=== PATIENT | female | born 1950 | race Caucasian/White ===

== ENCOUNTER 2024-06-08 16:26 | Emergency (ER) | payer MEDICARE, SELFPAY ==
[2024-06-08] VITALS (12 sets, daily range): BP systolic 118–150; BP diastolic 66–76; PULSE 54–70; RESP 9–18; TEMP 36.7; O2SAT 96–98; BMI 28.3
--- NOTE | 2024-06-08 17:47 | EKG_ITS ---
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
--- NOTE | 2024-06-08 17:47 | DI.RAD.S_ITS ---
PROCEDURE: XR CHEST 1V INDICATIONS: chest pain TECHNIQUE: One view of the chest was acquired. COMPARISON: None. FINDINGS: Surgical changes and devices: None. Lungs and pleura: Lungs are clear. No pleural effusions or pneumothorax. Mediastinum: Mediastinal contours appear normal. Heart size is enlarged. Bones and chest wall: No suspicious bony lesions. Overlying soft tissues appear unremarkable. IMPRESSION: No acute pulmonary process. Dictated by: Inez Cortes M.D. on 06/08/2024 at 18:39 Approved by: Inez Cortes M.D. on 06/08/2024 at 18:39
--- NOTE | 2024-06-08 17:50 | PC.NURSE ---
Pt states she would like to go home. I asked pt what her concerns were regarding her visit. Pt states she feels silly for coming to the ER for her symptoms and wants to leave. I talked with pt to find out more about her symptoms and provided education on s/s. Pt understands concern and states she is willing to stay in the ER to be evaluated by provider. Pt endorses she was nervous to go home because her 1.5years ago in his sleep, and she did not want to have a stroke while at home alone. Pt alert and oriented x4. No weakness. No nausea. No chest pain or other pain. She initially contributed her symptoms to taking trazodone at night to help fall asleep and decided to come to the ER after her dizziness did not change throughout the day.
[2024-06-08 18:21] LABS: Add Manual Diff / Slide Review NO; Basophils Absolute Auto 0 /uL (0-100); Basophils Percent Auto 0.9 % (0-2); Eosinophils Absolute Auto 100 /uL (0-450); Eosinophils Percent Auto 2.6 % (2-4); Hematocrit 41.9 % (36-46); Hemoglobin 13.7 g/dL (12.0-16.0); Lymphocytes Absolute Auto 1500 /uL (1100-4500); Mean Corpuscular HGB Conc 32.8 % (30-36); Mean Corpuscular Hemoglobin 28.5 PG (26-34); Mean Corpuscular Volume 86.8 fL (80-100); Monocytes Absolute Auto 400 /uL (0-900); Monocytes Percent Auto 9.9 % (3-14); Neutrophils Absolute Auto 1900 /uL (1500-7000); Neutrophils Percent Auto 49.6 % (50-75); Platelet Count 204 X10^3/uL (150-400); Red Blood Cell Count 4.82 X10^6/uL (4.0-5.2); Red Cell Distribution Width 13.9 % (11.6-14.8); White Blood Cell Count 3.9 X10^3/uL (4.5-11.0)
[2024-06-08 18:30] LABS: Prothrombin Time 10.9 SECONDS (9.4-12.5)
[2024-06-08 18:33] LABS: PTT Partial Thromboplastin Tim 38 SECONDS (25.1-36.5)
[2024-06-08 18:36] LABS: Alanine Aminotransferase 20 IU/L (<35); Albumin 4.2 g/dL (3.5-5.0); Albumin Globulin Ratio 1.4 (1.0-2.8); Alkaline Phosphatase 64 U/L (38-126); Aspartate Aminotransferase 21 IU/L (14-36); BUN Creatinine Ratio 25.4 (6-22); Bilirubin Total 0.3 mg/dL (0.2-1.3); Blood Urea Nitrogen 16 mg/dL (7-17); Calcium 9.1 mg/dL (8.4-10.2); Carbon Dioxide 25 mmol/L (22-32); Chloride 107 mmol/L (98-107); Creatine Kinase 67 U/L (30-135); Estimated Glomerular Filt Rate > 60 mL/min (>60); Glucose 104 mg/dL (80-110); Lipase 96 U/L (23-300); Magnesium 2.2 mg/dL (1.6-2.3); Potassium 4.4 mmol/L (3.4-5.1); Sodium 137 mmol/L (137-145); Total Protein 7.2 g/dL (6.3-8.2)
--- NOTE | 2024-06-08 18:37 | ED.DIZZY ---
HPI - Dizziness General Chief Complaint: Dizziness Stated Complaint: sent by [facility] for dizziness Time Seen by Provider: 06/08/24 17:57 Source: patient Mode of arrival: Wheelchair History of Present Illness HPI Narrative: Patient 74-year-old female history of hypothyroidism presenting today with sudden onset of dizziness. She reports that this morning around 5:00 a.m. she woke up feeling dizzy. She tried to get up and go the kitchen make coffee and just felt like she was not doing well. She felt the floor was on even. She has been feeling nauseated off and on but not too bad never really vomited. He has been feeling tingling all over her body. She can find positions of comfort of lying flat and not moving or sitting straight upright. But every time she turns her head she gets really dizzy. She has no prior history of vertigo or CVA. She reports she has been under a lot of stress this year recently started taking half a tablet of trazodone to go to sleep at night which has helped her. She has been doing this for about 10 nights in a row and never had this issue. She denies any fevers or chills. Related Data Previous Rx's Medication Instructions Recorded meclizine 25 mg tablet 25 mg PO TID PRN dizziness #10 tabs 06/08/24 ondansetron 4 mg disintegrating 4 mg PO Q8H PRN nausea and 06/08/24 tablet vomiting #10 tabs Allergies Allergy/AdvReac Type Severity Reaction Status Date / Time No Known Drug Allergies Allergy Verified 06/08/24 16:45 Patient History Social History Smoking Status: Never smoker Smoking Status: Never smoker alcohol intake frequency: holidays/special occasions only Substance Use Type: marijuana Exam Initial Vital Signs Initial Vital Signs: Vital Signs Temperature 98.0 F 06/08/24 16:36 Pulse Rate 70 06/08/24 16:36 Respiratory Rate 18 06/08/24 16:36 Blood Pressure 150/76 H 06/08/24 16:36 Pulse Oximetry 98 06/08/24 16:36 Oxygen Delivery Method Room Air 06/08/24 16:36 GENERAL: Alert well-appearing 74-year-old female sitting upright and in [no acute] distress. HEENT: Head atraumatic,EOMI, pupils reactive, no nystagmus face symmetric, [moist] mucous membranes CARDIOVASCULAR: Regular rate and rhythm without murmurs, rubs or gallops. RESPIRATORY: Breath sounds equal bilaterally, no wheezes rales or rhonchi. ABDOMEN: Soft, nontender. Normoactive bowel sounds all 4 quadrants. No guarding or rebound. EXTREMITIES: Normal range of motion, no clubbing or edema. Neurovascularly intact NEUROLOGICAL: Alert and oriented x4.Normal gait and speech. Cranial nerves II through XII grossly intact. Audio/Video Technician strength equal bilaterally good omtqlt-lb-pool bilaterally good uqxi-fr-iool face symmetric no facial droop no aphasia or dysarthria SKIN: Warm, dry, no laceration, no petechiae, no rashes or lesions. Scores NIH Stroke Scale Level of Conciousness: Alert, keenly responsive Ask month/age: Answers both questions correctly. Open/close eyes, close hand: Performs both tasks correctly Best gaze horizontal: Normal Visual balbuena: No visual loss Facial palsy: Normal symetrical movement Left arm drift: No drift for full 10 sec Right arm drift: No drift for full 10 sec Left leg drift: No drift for full 5 sec Right leg drift: No drift for full 5 sec Limb ataxia: Absent Sensory on face/arms/legs: Normal, no sensory loss Best language: No aphasia, normal Dysarthria: Normal Extinction or inattention: No abnormality Total NIH Stroke scale score: 0 Course Orders Ordered: ED Orders 06/08/24 17:47 XR chest 1V Stat EKG-12 Lead Stat 06/08/24 18:15 Complete Blood Count AUTO DIFF Stat Comprehensive Metabolic Panel Stat Lipase Stat Magnesium Stat NT-proBNP (BNP-Adult 18+) Stat PTT Partial Thromboplastin Brandon Stat Prothrombin Time INR Stat Troponin & CK Cardiac Panel Stat 06/08/24 18:44 CT angio head and neck Stat Discontinued Medications Aspirin (Aspirin 81 Mg Chew Tab) 324 mg PO NOW ONE Stop: 06/08/24 17:48 Last Admin: 06/08/24 18:18 Dose: Not Given Documented By: SPF Meclizine HCl (Meclizine Hcl 12.5 Mg Tablet) 50 mg PO NOW ONE Stop: 06/08/24 20:03 Last Admin: 06/08/24 20:06 Dose: 50 mg Documented By: LS Vital Signs Vital signs: Vital Signs - 8 hr 06/08/24 18:30 06/08/24 18:31 06/08/24 18:31 Pulse Rate 64 64 Respiratory Rate Blood Pressure 118/66 Pulse Oximetry 98 98 Oxygen Delivery Method Oxygen Flow Rate 06/08/24 19:08 06/08/24 19:30 06/08/24 19:52 Pulse Rate 59 L 59 L 60 Respiratory Rate 14 17 Blood Pressure Pulse Oximetry 96 97 97 Oxygen Delivery Method Nasal Cannula Room Air Oxygen Flow Rate 2 06/08/24 19:52 Pulse Rate Respiratory Rate Blood Pressure 129/71 Pulse Oximetry Oxygen Delivery Method Oxygen Flow Rate MDM - Dizziness Lab Data 06/08/24 18:15 06/08/24 18:15 Labs: Lab Results 06/08/24 Range/Units 18:15 WBC 3.9 L (4.5-11.0) X10^3/uL RBC 4.82 (4.0-5.2) X10^6/uL Hgb 13.7 (12.0-16.0) g/dL Hct 41.9 (36-46) % MCV 86.8 (80-100) fL MCH 28.5 (26-34) PG MCHC 32.8 (30-36) % RDW 13.9 (11.6-14.8) % Plt Count 204 (150-400) X10^3/uL Neut % (Auto) 49.6 L (50-75) % Lymph % (Auto) 37.0 (25-40) % [place] % (Auto) 9.9 (3-14) % Eos % (Auto) 2.6 (2-4) % Baso % (Auto) 0.9 (0-2) % Neut # (Auto) 1900 (4311-9383) /uL Lymph # (Auto) 1500 (2739-8834) /uL [place] # (Auto) 400 (0-900) /uL Eos # (Auto) 100 (0-450) /uL Baso # (Auto) 0 (0-100) /uL PT 10.9 (9.4-12.5) SECONDS INR 1.0 (0.9-1.3) APTT 38 H (25.1-36.5) SECONDS Sodium 137 (137-145) mmol/L Potassium 4.4 (3.4-5.1) mmol/L Chloride 107 (98-107) mmol/L Carbon Dioxide 25 (22-32) mmol/L BUN 16 (7-17) mg/dL Creatinine 0.63 (0.52-1.04) mg/dL Estimated GFR > 60 (>60) mL/min BUN/Creatinine Ratio 25.4 H (6-22) Glucose 104 (80-110) mg/dL Calcium 9.1 (8.4-10.2) mg/dL Magnesium 2.2 (1.6-2.3) mg/dL Total Bilirubin 0.3 (0.2-1.3) mg/dL AST 21 (14-36) IU/L ALT 20 (<35) IU/L Alkaline Phosphatase 64 (38-126) U/L Total Creatine Kinase 67 (30-135) U/L Troponin I < 0.012 (0.01-0.034) ng/mL NT-Pro-B Natriuret Pep 94 (<125) pg/mL Total Protein 7.2 (6.3-8.2) g/dL Albumin 4.2 (3.5-5.0) g/dL Globulin 3.0 (1.7-4.1) g/dL Albumin/Globulin Ratio 1.4 (1.0-2.8) Lipase 96 (23-300) U/L Urine Dip Bedside Urine Glucose Negative Bedside Urine Bilirubin - Negative Bedside Urine Ketone - Negative Urine Specific [place] 1.010 Bedside Urine Occult Blood - Negative Bedside Urine pH 6.0 Bedside Urine Protein - Negative Bedside Urine Urobilinogen - Negative Bedside Urine Nitrite - Negative Bedside Urine Leukocytes - Negative Esterase Imaging Data Chest x-ray: Radiologist's Impression: PROCEDURE: XR CHEST 1V INDICATIONS: chest pain TECHNIQUE: One view of the chest was acquired. COMPARISON: None. FINDINGS: Surgical changes and devices: None. Lungs and pleura: Lungs are clear. No pleural effusions or pneumothorax. Mediastinum: Mediastinal contours appear normal. Heart size is enlarged. Bones and chest wall: No suspicious bony lesions. Overlying soft tissues appear unremarkable. IMPRESSION: No acute pulmonary process. Dictated by: Inez Cortes M.D. on 06/08/2024 at 18:39 CTA - brain/neck: Radiologist's Impression: PROCEDURE: CT ANGIO HEAD AND NECK INDICATIONS: dizzy TECHNIQUE: After the administration of intravenous contrast, 1 mm thick sections acquired from the aortic arch through the [place] of [place]. 3-dimensional vfygqai-fpcvqwigj-opqapxqjoz (MIP) and/or volume rendering reformats were acquired of the central intracranial vasculature and neck separately. For radiation dose reduction, the following was used: automated exposure control, adjustment of mA and/or kV according to patient size. COMPARISON: None. FINDINGS: Image quality: Diagnostic. BRAIN: The ventricular system and cortical sulci demonstrate atrophy, consistent for the patient's stated age. There are areas of hypodensity within the periventricular and subcortical white matter. There is no acute intra-or extra axial fluid collection. No acute hemorrhage, mass lesion or midline shift. Brainstem is unremarkable. Globes are symmetrical. Sinuses are aerated. Osseous structures are intact. HEAD CT ANGIOGRAPHY: Anterior circulation: Intracranial internal carotid arteries are normal in size and flow. The flow within the paired anterior cerebral arteries is normal and symmetric. The flow within the middle cerebral arteries is normal and symmetric. The anterior communicating artery is seen. No aneurysms are seen. Posterior circulation: Vertebral arteries are codominant. Visualized portions of the vertebral arteries demonstrate normal caliber, and join to form a normal appearing basilar artery. Flow within the posterior cerebral arteries is normal and symmetric. No aneurysms are seen. NECK CT ANGIOGRAPHY: Carotid system: The great vessels demonstrate a conventional anatomy as they arise from the aortic arch. The origins of the common carotid arteries appear patent. The common carotid arteries demonstrate normal caliber and courses. The bifurcation regions are both widely patent. The internal carotid arteries demonstrate normal calibers and courses. Posterior circulation: The origins of the vertebral arteries both appear widely patent. The more superior extracranial portions of both vertebral arteries also demonstrate normal courses and calibers. They join to form a normal appearing basilar artery. Soft tissues: Visualized neck soft tissues demonstrate no suspicious abnormalities. Bones: No suspicious bony lesions. Visualized cervical spine appears normally aligned. IMPRESSION: No significant intracranial arterial abnormality is seen. No significant abnormality is seen within the arteries of the neck. Any quantitative measurements of stenosis were performed using NASCET criteria. Dictated by: Inez Cortes M.D. on 06/08/2024 at 19:28 Approved by: Inez Cortes M.D. on 06/08/2024 at 19:30 ECG Data Attestation: I personally reviewed and interpreted this ECG as follows: Prior ECG tracings: not available for review Interpretation: Normal sinus rhythm rate 58 CO interval 170 QRS 72 T-wave inversion noted in lead 3 only no ischemic changes no priors to compare MDM Narrative Medical decision making narrative: [facility] CC: Dizziness Complicating co-morbidities: Hypothyroidism Medical records reviewed: Record from walk-in clinic reviewed Differential considered: Vertigo, posterior CVA Meniere's disease Exam documented above, pertinent findings include: NIH stroke scale now in a monogamous knotter hand strength equal face symmetric Lab Test results independently reviewed as above. Pertinent findings: WBC 3.9 CMP no electrolyte abnormality no ANDRES Troponin negative Independently reviewed EKG as above no ischemia no arrhythmia Imaging studies independently reviewed: CT angio no significant intracranial abnormality Chest x-ray no acute cardiopulmonary process Consultations: None Treatments: Meclizine Re-evaluations: Patient ambulated in the emergency department with a steady gait still feeling dizzy but she says no worse then she was previously Discussion: Patient 74-year-old female presenting today with sudden onset dizziness. It is very positional she has positions of comfort is lying flat or sitting up right. She has no focal deficits. Blood work is overall reassuring and within normal range. CT imaging does not show any abnormality. Patient ambulated she has not having any significant nausea or vomiting. At this time I think symptoms are most consistent with BPH rather than posterior stroke. Discharge Plan Departure Patient Disposition: Home Clinical Impression: Vertigo Instructions: DI for Vertigo Activity Restrictions/Additional Instructions: *You have been diagnosed with vertigo *What to do: At this time your blood work and CT scan overall reassuring. I think that you have vertigo. Unfortunately this resolves on its own. I hope that it gets better for you soon *Continue to take medications as directed Meclizine 25-50 mg every 8 hours if needed for dizziness Zofran 4 mg every 8 hours only if needed for nausea or vomiting *Follow up with your primary care provider in 2-3 days or call [phone] *Return to ER if you should have increasing dizziness numbness tingling weakness persistent vomiting or any new, worsening or concerning symptoms Prescriptions: New meclizine 25 mg tablet 25 mg PO TID PRN (Reason: dizziness) Qty: 10 0RF ondansetron 4 mg tablet,disintegrating 4 mg PO Q8H PRN (Reason: nausea and vomiting) Qty: 10 0RF Referrals: Sallie Braun DO [Primary Care Provider] - Stand Alone Forms: Patient Portal/API
--- NOTE | 2024-06-08 18:44 | DI.CT.S_ITS ---
PROCEDURE: CT ANGIO HEAD AND NECK INDICATIONS: dizzy TECHNIQUE: After the administration of intravenous contrast, 1 mm thick sections acquired from the aortic arch through the [place] of [place]. 3-dimensional vzaugvn-ldeqvxlzf-jqxxxhhwha (MIP) and/or volume rendering reformats were acquired of the central intracranial vasculature and neck separately. For radiation dose reduction, the following was used: automated exposure control, adjustment of mA and/or kV according to patient size. COMPARISON: None. FINDINGS: Image quality: Diagnostic. BRAIN: The ventricular system and cortical sulci demonstrate atrophy, consistent for the patient's stated age. There are areas of hypodensity within the periventricular and subcortical white matter. There is no acute intra-or extra axial fluid collection. No acute hemorrhage, mass lesion or midline shift. Brainstem is unremarkable. Globes are symmetrical. Sinuses are aerated. Osseous structures are intact. HEAD CT ANGIOGRAPHY: Anterior circulation: Intracranial internal carotid arteries are normal in size and flow. The flow within the paired anterior cerebral arteries is normal and symmetric. The flow within the middle cerebral arteries is normal and symmetric. The anterior communicating artery is seen. No aneurysms are seen. Posterior circulation: Vertebral arteries are codominant. Visualized portions of the vertebral arteries demonstrate normal caliber, and join to form a normal appearing basilar artery. Flow within the posterior cerebral arteries is normal and symmetric. No aneurysms are seen. NECK CT ANGIOGRAPHY: Carotid system: The great vessels demonstrate a conventional anatomy as they arise from the aortic arch. The origins of the common carotid arteries appear patent. The common carotid arteries demonstrate normal caliber and courses. The bifurcation regions are both widely patent. The internal carotid arteries demonstrate normal calibers and courses. Posterior circulation: The origins of the vertebral arteries both appear widely patent. The more superior extracranial portions of both vertebral arteries also demonstrate normal courses and calibers. They join to form a normal appearing basilar artery. Soft tissues: Visualized neck soft tissues demonstrate no suspicious abnormalities. Bones: No suspicious bony lesions. Visualized cervical spine appears normally aligned. IMPRESSION: No significant intracranial arterial abnormality is seen. No significant abnormality is seen within the arteries of the neck. Any quantitative measurements of stenosis were performed using NASCET criteria. Dictated by: Inez Cortes M.D. on 06/08/2024 at 19:28 Approved by: Inez Cortes M.D. on 06/08/2024 at 19:30
[2024-06-08 18:47] LABS: Troponin I < 0.012 ng/mL (0.01-0.034)
[2024-06-08 19:03] LABS: HEMOLYSIS < 15 (0-50); NT-proBNP (BNP-Adult 18+) 94 pg/mL (<125)
--- NOTE | 2024-06-08 20:00 | PC.NURSE ---
Pt ambulatory around department with one person standby. States continued dizziness but does not impair ambulation. Dr. Palma man.
[2024-06-08] MEDS: MECLIZINE HCL 12.5 MG TABLET 50 MG PO (20:06)
== END 2024-06-08 20:18 | disposition home or self-care (01) ==
PROVIDERS: Student in an Organized Health Care Education/Training Program; Emergency Provider Emergency Medicine; PCP Student in an Organized Health Care Education/Training Program
DX: R42 Dizziness and giddiness (principal); R07.9 Chest pain, unspecified; R00.1 Bradycardia, unspecified
CPT/HCPCS: 36415; 70496; 70498; 71045; 80053; 81003; 82550; 83690; 83735; 83880; 84484; 85025; 85610; 85730; 93005; 99284

== ENCOUNTER → 2025-03-15 11:38 | Outpatient (CLI) | payer MEDICARE, SELFPAY ==
--- NOTE | 2025-03-15 11:39 | DI.RAD.S_ITS ---
PROCEDURE: XR DEXA AXIAL SKELETON INDICATIONS: screening for osteoporosis COMPARISON: None. FINDINGS: Lumbar Spine: Bone mineral density 0.905 g/cm2, T score -1.3. Left Femoral Neck: Bone mineral density 0.549 g/cm2, T score -2.7. Left Hip: Bone mineral density 0.680 g/cm2, T score -2.2. Fracture Risk Calculation (when applicable): 10-year fracture risk of a major osteoporotic fracture 17 percent and of a hip fracture 5.1 percent. IMPRESSION: Osteoporosis Follow-up guidelines as follows: Osteoporosis: Consider a repeat DEXA and Vertebral Fracture Assessment (VFA) exam in 2 years or sooner if medically necessary, to reassess this patient's status. Osteopenia: Consider a repeat DEXA in 2-3 years to reassess this patient's status, or if there is a new clinical indication. Normal: Consider a repeat DEXA in 5 years or sooner, or if there is a new clinical indication. All treatment decisions require clinical judgment and consideration of individual patient factors, including patient preferences, comorbidities, previous drug use, risk factors not captured in the FRAX model (e.g., frailty, falls, vitamin D deficiency, increased bone turnover, interval significant decline in bone density ) and possible under- or over-estimation of fracture risk by FRAX. In addition, the NOF Guide recommends that FDA-approved medical therapies be considered in postmenopausal women and men age >= 50 years with a: * Hip or vertebral (clinical or morphometric) fracture * T-score of <=-2.5 at the spine or hip * Ten-year fracture probability by FRAX of >= 3% for hip fracture or >=20% for major osteoporotic fracture. Dictated by: Josue Daily M.D. on 03/18/2025 at 0:13 Approved by: Josue Daily M.D. on 03/18/2025 at 5:45
== END ==
LOC: RAD 11:38
PROVIDERS: PCP Family Medicine; Referring Provider Family Medicine; Visit Provider Family Medicine
DX: M81.0 Age-related osteoporosis without current pathological fracture (principal)
CPT/HCPCS: 77080

== ENCOUNTER → 2025-03-26 10:33 | Outpatient (CLI) | payer MEDICARE, SELFPAY ==
[2025-03-26 11:53] LABS: TSH w/ Reflex to FT4 2.19 uIU/mL (0.47-4.68)
== END ==
PROVIDERS: PCP Family Medicine; Referring Provider Family Medicine; Visit Provider Family Medicine
DX: E03.9 Hypothyroidism, unspecified (principal)
CPT/HCPCS: 36415; 84443

== ENCOUNTER 2025-07-16 10:03 | Emergency (ER) | payer MEDICARE, SELFPAY ==
[2025-07-16 10:08] VITALS: BP 141/77; PULSE 90; RESP 14; TEMP 37.1; O2SAT 98; BMI 28.3
--- NOTE | 2025-07-16 10:16 | ED.GENADULT ---
HPI - General Adult General Chief complaint: Vaginal Bleeding Stated complaint: pcp rec, heavy vaginal bleeding 18 hrs Time Seen by Provider: 07/16/25 10:16 Source: patient Mode of arrival: Ambulatory History of Present Illness HPI narrative: 75 years old female with history of hypothyroidism, osteoporosis , on estrogen /testosterone and progesterone hormone supplement came in today complaining of vaginal bleeding since yesterday and has used 4 pads yesterday and 2 pads today. Yesterday she also complain of lower abdominal cramping. she also reported some lightheadedness but denied any loss of consciousness, chest pain, shortness of breath, other bleeding, leg pain, leg swelling, headache, fever, runny nose, sore throat, coughing. Her doctor increased her progesterone but still bleeding this morning. No previous history of bleeding since after start on hormone supplement for about a year. Related Data Home Medications ?Medication ?Instructions ?Recorded ?Confirmed denosumab 60 mg/mL subcutaneous mg SUBCUT Osteoporosis 02/17/25 02/17/25 syringe (Prolia) naltrexone 4.5 mg capsule cap PO Anxiety 02/17/25 02/17/25 progesterone micronized 200 mg 200 mg PO DAILY 02/17/25 02/17/25 capsule Previous Rx's ?Medication ?Instructions ?Recorded levothyroxine 112 mcg tablet 112 mcg PO DAILY #90 tabs 06/22/25 Allergies Allergy/AdvReac Type Severity Reaction Status Date / Time No Known Drug Allergies Allergy Verified 07/16/25 10:08 Review of Systems Review of Systems Narrative: Positive for vaginal bleeding, abdominal cramps, lightheadedness. Negative for loss of consciousness, chest pain, shortness of breath, leg pain, leg swelling, diarrhea, constipation, headache, vomiting blood, coughing blood, urinating blood, black stool, blood in the stool or taking blood thinners. Patient History Medical History (Updated 07/16/25 @ 14:11 by Geovanni Nixon MD) Wears glasses Allergies (~2005) Anxiety (~2022) Osteoporosis (~2007) Fractures (~1966) Chicken pox Tinnitus (~2011) Infertility (~1983) Hypothyroidism (~1969) Skin cancer (~2007) Surgical History (Updated 01/13/25 @ 19:05 by Traci Stokes) Anesthesia Status post Mohs surgery History of abdominoplasty (~2008) Family History (Updated 01/13/25 @ 19:08 by Traci Stokes) Father History of heart disease Mother Cancer Brother History of heart disease Hyperlipidemia Brother History of heart disease Sister Arthritis History of being obese Grandfather Broken hip Grandmother Cancer Grandfather Stroke Smoking Status: Unknown if ever smoked alcohol intake frequency: holidays/special occasions only Exam Narrative Exam Narrative: GENERAL: Alert awake without acute distress. HEAD: Atraumatic. Normocephalic. NECK: Trachea midline. Non tender CARDIOVASCULAR: Regular rate and rhythm without murmurs, gallops, or rubs. RESPIRATORY: Clear to auscultation. Breath sounds equal bilaterally. No wheezes, rales, or rhonchi. GASTROINTESTINAL: Abdomen soft, non-tender, nondistended. EXTREMITIES: No edema or joint tenderness. BACK: Nontender without deformity or crepitance. No flank tenderness. NEURO: AOx3. SKIN: No rash or erythema of visible areas Pelvic exam: Deferred. Initial Vital Signs Initial Vital Signs: Vital Signs Temperature 98.8 F 07/16/25 10:08 Pulse Rate 90 07/16/25 10:08 Respiratory Rate 14 07/16/25 10:08 Blood Pressure 141/77 H 07/16/25 10:08 Pulse Oximetry 98 07/16/25 10:08 Oxygen Delivery Method Room Air 07/16/25 10:08 Course Orders Ordered: Discontinued Medications Sodium Chloride (Normal Saline 0.9%) 500 mls @ 1,000 mls/hr IV BOLUS ONE Stop: 07/16/25 13:24 Last Admin: 07/16/25 14:09 Dose: Not Given Documented By: CTS Vital Signs Vital signs: Vital Signs - 8 hr 07/16/25 10:08 Temperature 98.8 F Pulse Rate 90 Respiratory Rate 14 Blood Pressure 141/77 H Pulse Oximetry 98 Oxygen Delivery Method Room Air Medical Decision Making Lab Data 07/16/25 10:33 07/16/25 10:33 Labs: Lab Results 07/16/25 Range/Units 10:33 WBC 5.1 (4.5-11.0) X10^3/uL RBC 4.92 (4.0-5.2) X10^6/uL Hgb 14.5 (12.0-16.0) g/dL Hct 42.8 (36-46) % MCV 87.0 (80-100) fL MCH 29.4 (26-34) PG MCHC 33.9 (30-36) % RDW 13.3 (11.6-14.8) % Plt Count 218 (150-400) X10^3/uL Neut % (Auto) 65.5 (50-75) % Lymph % (Auto) 24.6 L (25-40) % [place] % (Auto) 7.7 (3-14) % Eos % (Auto) 1.5 L (2-4) % Baso % (Auto) 0.7 (0-2) % Neut # (Auto) 3400 (3732-2894) /uL Lymph # (Auto) 1300 (7126-1604) /uL [place] # (Auto) 400 (0-900) /uL Eos # (Auto) 100 (0-450) /uL Baso # (Auto) 0 (0-100) /uL Sodium 139 (137-145) mmol/L Potassium 4.3 (3.4-5.1) mmol/L Chloride 110 H (98-107) mmol/L Carbon Dioxide 19 L (22-32) mmol/L BUN 21 H (7-17) mg/dL Creatinine 1.17 H (0.52-1.04) mg/dL Estimated GFR 49 L (>60) mL/min BUN/Creatinine Ratio 17.9 (6-22) Glucose 109 H (70-99) mg/dL Calcium 8.4 (8.4-10.2) mg/dL Total Bilirubin 0.2 (0.2-1.3) mg/dL AST 22 (14-36) IU/L ALT 16 (<35) IU/L Alkaline Phosphatase 72 (38-126) U/L Total Protein 7.5 (6.3-8.2) g/dL Albumin 4.4 (3.5-5.0) g/dL Globulin 3.1 (1.7-4.1) g/dL Albumin/Globulin Ratio 1.4 (1.0-2.8) ECG Data Interpretation: EKG showed normal sinus rhythm at a denied beats per minute without ischemic ST-T changes. No prolonged QT. MDM Narrative Medical decision making narrative: 75 years old female with history of hypothyroidism, osteoporosis , on estrogen /testosterone and progesterone hormone supplement came in today complaining of vaginal bleeding since yesterday and has used 4 pads yesterday and 2 pads today. Yesterday she also complain of lower abdominal cramping. she also reported some lightheadedness but denied any loss of consciousness, chest pain, shortness of breath, other bleeding, leg pain, leg swelling, headache, fever, runny nose, sore throat, coughing. Her doctor increased her progesterone but still bleeding this morning. No previous history of bleeding since after start on hormone supplement for about a year. Her CV exam, lung exam, abdominal exam were normal. She alert oriented x4 without acute distress in the ED. 1:22 p.m. I discussed the case with our heading pinner on-call we will suggest that we may be able to get her to see her OBGYN to get follow up procedure for endometrial biopsy, polypectomy. I will get in touch with her OBGYN. 1:40 p.m.I discussed the case with her primary care doctor, Zeina Kelly MD who did not do endometrial biopsy. 2:07 p.m.. I discussed again with our OBGYN Dr. Daily recommends have the patient follow up with local OBGYN for endometrial biopsy and polypectomy outpatient. CBC was normal. Her BMP shows BUN 21 and creatinine 1.17 otherwise normal BNP. Her LFT was normal. Her pelvic ultrasound showed endometrial thickening 11 mm and possible polyp at the cervix 10 mm. I asked her to [facility] [phone] Discharge Plan Departure Patient Disposition: Home Clinical Impression: Thickened endometrium, Hemorrhage, postmenopausal, Cervical polyp Instructions: DI for Vaginal Bleeding Activity Restrictions/Additional Instructions: please set up OBGYN outpatient to get procedure done for endometrial biopsy and polyp removal. Please come back to the emergency room if any worsening symptoms including but not limited to worsening bleeding, chest pain, shortness of breath, dizziness, loss of consciousness. Please call [phone] to get follow up with [facility] outpatient. Prescriptions: No Action progesterone micronized 200 mg capsule 200 mg PO DAILY Prolia 60 mg/mL syringe SUBCUT naltrexone 4.5 mg capsule PO levothyroxine 112 mcg tablet 112 mcg PO DAILY Qty: 90 3RF Referrals: Zeina Kelly MD [Primary Care Provider, Family Practice] Stand Alone Forms: Patient Portal/API
--- NOTE | 2025-07-16 10:21 | DI.US.S_ITS ---
PROCEDURE: US PELVIC COMPLETE INDICATIONS: BLEEDING TECHNIQUE: Real-time scanning was performed of the pelvic organs, with image documentation. Additional endovaginal scanning was necessary due to incomplete visualization of the adnexal and endometrial structures by transabdominal scanning. COMPARISON: None. FINDINGS: Uterus: Uterus is retroverted and normal in size at 8.2 x 5.1 x 4.3 cm. The myometrium is heterogeneous. The endometrium measures 11.4 mm combined thickness. Fluid within the endometrium and cervix with low-level echoes, most consistent with blood product. Isoechoic hypervascular area in the cervix measuring 10 x 7 x 5 mm, may represent a polyp/mass. Ovaries: The ovaries are not seen. Other: No pathologic free abdominal or pelvic fluid. IMPRESSION: Endometrium is thickened measuring 11 mm. Likely blood product is seen within the endometrium and cervix. Hypervascular lesion in the cervix measuring up to 10 mm concerning for polyp/mass. Recommend gynecology consultation. The ovaries are not seen. We strive to produce accurate, complete, and clear reports of imaging services. To assist us in improving patient care, this report was composed using standard report templates and voice recognition software. Therefore, it may contain abnormal punctuation, insertions and/or omissions. Occasional wrong-word or sound-alike substitutions may occur. Though we review the report and make efforts to correct it, we do recommend that the report be read carefully in proper context to recognize any text inaccuracies. Dictated by: John Paul Taylor M.D. on 07/16/2025 at 12:46 Approved by: John Paul Taylor M.D. on 07/16/2025 at 12:57
--- NOTE | 2025-07-16 10:22 | EKG_ITS ---
[place] [id number] [place] [id number] Test Date: 2025-07-16 Pat Name: Tylor Oscar Department: [facility] Room: Gender: Female Clinical Neuropsychologist: MARILYN : 1950 Requested By: Order Number: [id number] Reading MD: Ananda Maya MD Measurements Intervals [place] Rate: 89 P: 39 WI: 154 QRS: -23 QRSD: 74 T: 16 QT: 376 QTc: 457 Interpretive Statements Normal sinus rhythm Minimal voltage criteria for LVH, may be normal variant ( R in aVL ) Cannot rule out Anterior infarct , age undetermined Electronically Signed On 07-16-2025 12:03:15 PST by Ananda Maya MD
[2025-07-16 10:43] LABS: Add Manual Diff / Slide Review NO; Hematocrit 42.8 % (36-46); Hemoglobin 14.5 g/dL (12.0-16.0); Lymphocytes Absolute Auto 1300 /uL (1100-4500); Mean Corpuscular HGB Conc 33.9 % (30-36); Mean Corpuscular Hemoglobin 29.4 PG (26-34); Mean Corpuscular Volume 87.0 fL (80-100); Platelet Count 218 X10^3/uL (150-400)
[2025-07-16 11:06] LABS: Alanine Aminotransferase 16 IU/L (<35); Albumin 4.4 g/dL (3.5-5.0); Albumin Globulin Ratio 1.4 (1.0-2.8); Alkaline Phosphatase 72 U/L (38-126); Blood Urea Nitrogen 21 mg/dL (7-17); Calcium 8.4 mg/dL (8.4-10.2); Carbon Dioxide 19 mmol/L (22-32); Chloride 110 mmol/L (98-107); Globulin 3.1 g/dL (1.7-4.1); Glucose 109 mg/dL (70-99); HEMOLYSIS < 15 (0-50); Potassium 4.3 mmol/L (3.4-5.1); Sodium 139 mmol/L (137-145); Total Protein 7.5 g/dL (6.3-8.2)
[2025-07-16 11:19] LABS: Estimated Glomerular Filt Rate 49 mL/min (>60)
[2025-07-16 14:32] VITALS: BP 118/77; PULSE 77; RESP 20; O2SAT 98
== END 2025-07-16 14:30 | disposition home or self-care (01) ==
PROVIDERS: Emergency Provider Emergency Medicine; PCP Family Medicine
DX: N95.0 Postmenopausal bleeding (principal); R93.89 Abnormal findings on diagnostic imaging of other specified body structures; N84.1 Polyp of cervix uteri
CPT/HCPCS: 76830; 76856; 80053; 85025; 93005; 93010; 99281; 99284